=== PATIENT | female | born 1960 | race Asian ===

== ENCOUNTER 2024-04-17 20:08 | Emergency (ER) | payer OTHER ==
[~2024-04-17] VITALS: Ht 162.6 cm; Wt 52.2 kg
[2024-04-17 20:54] VITALS: BP 160/82; PULSE 68; RESP 22; TEMP 98; O2SAT 99
[2024-04-17 22:43] VITALS: BP 156/78; PULSE 71; RESP 20; TEMP 98.2
[2024-04-17 23:43] VITALS: O2SAT 99
[2024-04-17] MEDS: ACETAMINOPHEN EXTRA STRENGTH 500 MG TAB PO ONE (23:48)
[2024-04-17] MEDS: BACITRACIN OINT 500 UNITS/GM PKT TP ONE (23:48)
[2024-04-18] MEDS ORDERED: LIDOCAINE/EPI 1% 1:100000 20 ML VIAL INJ ONE ×2 (00:09→00:10)
[2024-04-18] MEDS ORDERED: BACI-418 TP (00:14)
[2024-04-18] MEDS ORDERED: ACET-10509 PO (00:14)
[2024-04-18] MEDS: LIDOCAINE/EPI 1% 1:100000 20 ML VIAL INJ ONE (00:32)
== END 2024-04-18 01:30 | disposition home or self-care (01) ==
LOC: MED 20:08
DX: S51.011A Laceration without foreign body of right elbow, initial encounter (principal); S80.211A Abrasion, right knee, initial encounter; Z79.1 Long term (current) use of non-steroidal anti-inflammatories (NSAID); Z79.899 Other long term (current) drug therapy; V89.2XXA Person injured in unspecified motor-vehicle accident, traffic, initial encounter; Y93.55 Activity, bike riding; Y92.89 Other specified places as the place of occurrence of the external cause; Y99.8 Other external cause status
CPT/HCPCS: 12002; 73080; 90471; 90715; 99283; J2001